=== PATIENT | female | born 1960 | race Caucasian/White ===

== ENCOUNTER 2025-03-22 09:44 | Emergency (ER) | payer OTHER, SELFPAY ==
--- NOTE | ~2025-03-22 | XR_ITS ---
EXAMINATION: XR knee LT min 4V, 03/22/2025 10:20 CONSTRUCTION ECONOMIST HISTORY: injury THIS MORNING COMPARISON: No comparisons available. Findings: No acute fracture or malalignment. No significant degenerative changes. Soft tissues unremarkable. Impression: No acute fracture or malalignment. Reviewed, dictated and finalized at location P. TRUCTION ECONOMIST Impression: No acute fracture or malalignment.
--- NOTE | 2025-03-22 10:01 | ED.LOWEXIN ---
HPI - Extremity Injury (Lower) General Chief Complaint: Extremity Injury, Lower Stated Complaint: L knee Pain Time Seen by Provider: 03/22/25 10:35 Source: patient and RN notes reviewed Mode of arrival: ambulatory Limitations: no limitations History of Present Illness HPI Narrative: 64-year-old female Presents Express Care complaining of injury to left knee. Patient reports getting all the counts this morning filter left knee twists. Patient denies any popping sounds. Patient denies any falls or any other injuries. Patient's not try anything up with the pain. Patient states she injured her left knee 20 years ago and has issue since. Patient was never evaluated by specialist or an orthopedist. Patient denies any numbness, tingling or any other symptoms. Patient denies any significant past medical history. Related Data Home Medications ?Medication ?Instructions ?Recorded ?Confirmed ?Last Taken ?Type losartan 25 mg tablet mg 03/22/25 Unknown History meloxicam 7.5 mg tablet 7.5 mg PO DAILY 03/22/25 03/22/25 Unknown History Allergies Allergy/AdvReac Type Severity Reaction Status Date / Time Penicillins Allergy Swelling Verified 03/22/25 10:06 of Lip/Tongue/Throat Review of Systems Review of Systems: CONSTITUTIONAL: Denies fever, chills, or sweats. EYES: Denies visual changes, redness, or discharge. ENT: Denies rhinorrhea, congestion, sore throat, or otalgia. CARDIOVASCULAR: Denies chest pain, palpitations, or edema. RESPIRATORY: Denies cough or dyspnea. GASTROINTESTINAL: Denies abdominal pain, nausea, vomiting, or diarrhea. GENITOURINARY: Denies dysuria or hematuria. SKIN: Denies rash, wound, or itching. MUSCULOSKELETAL: Denies back pain, joint pain, or myalgia. Positive for left knee pain NEUROLOGIC: Denies headache, numbness, or weakness. PSYCHIATRIC: Denies anxiety or depression. All other systems reviewed are negative, except as documented in HPI. PMFSH Comments At the time of my signature, I reviewed and agree with the nursing past medical, surgical, social, and family history. There is no relevant family history pertinent to the patient complaint. Exam Narrative: GENERAL: This is a well-nourished, well-developed adult, in no apparent distress. They are non ill-appearing, nontoxic appearing. HEAD: normocephalic, atraumatic. EYES: Sclera clear/white. Vision is grossly intact. Conjunctiva normal. Extraocular movement intact. EARS: External ears normal Hearing grossly intact. NOSE: External nose normal THROAT: Mucous membranes moist NECK: Neck supple CARDIOVASCULAR: Regular rate and rhythm RESPIRATORY: Respiratory rate normal, respiratory effort nonlabored, no respiratory distress NEURO: awake, alert, and oriented to person, place and time. There were no obvious focal neurologic abnormalities. EXTREMITIES: No obvious deformity, injury, swelling, bruising, redness. There is pain to the lateral knee through full range of motion. No bony tenderness. Capillary refill less than 3 seconds. Normal sensation. Neurovascular status intact distal injury. There is valgus laxity compared to the right knee. No varus laxity. Negative anterior drawer test. BACK: Nontender without deformity. Course Course Emergency Course: Portions of this record may have been created with voice recognition software Level of Care: Express Care Visit Vital Signs Vital signs: Vital Signs Temperature 97.5 F L 03/22/25 10:06 Pulse Rate 57 L 03/22/25 10:06 Respiratory Rate 18 03/22/25 10:06 Blood Pressure 155/75 H 03/22/25 10:06 Pulse Oximetry 99 03/22/25 10:06 Oxygen Delivery Room Air 03/22/25 10:06 Temperature 97.5 F L 03/22/25 10:06 Pulse Rate 57 L 03/22/25 10:06 Respiratory Rate 18 03/22/25 10:06 Blood Pressure 155/75 H 03/22/25 10:06 Pulse Oximetry 99 03/22/25 10:06 Oxygen Delivery Room Air 03/22/25 10:06 Reviewed MDM - Extremity Injury (Lower) MDM Narrative Medical decision making narrative: X-ray left knee negative for any fracture or acute findings. Likely knee sprain. Patient given information for orthopedist. Offered patient Tra wrap, she says she has a brace at home she will wear. Discussed supportive care and rice therapy. Discussed physical exam findings. Advised supportive measures and signs/symptoms to go to the ER. Pt is appropriate for outpt treatment and f/u. Differential Diagnosis Differential diagnosis: Likely acute internal derangement of knee and other (Knee fracture, knee sprain, ligament injury) Imaging Data Radiologist's impression: ITS Impressions Knee X-Ray 11/25/25 10:33 Impression: No acute fracture or malalignment. Critical Care Time Critical Care Time Critical Care Time: No Discharge Plan Discharge Clinical Impression: Injury of knee, left Qualifiers: Encounter type: initial encounter Qualified Code(s): S89.92XA - Unspecified injury of left lower leg, initial encounter Patient Disposition: Home Condition: Stable Instructions: Knee Sprain (ED) Additional Instructions: The x-ray of your left knee is negative for any fractures or acute findings. Rest and elevate the leg; bear weight as tolerated Apply ice 15-20 minute intervals several times a day Keep it wrapped with TRA or use a knee brace Take your meloxicam as directed. You may also alternate with Tylenol follow instructions on the bottle. Follow up with your primary care provider orthopedist in 3-5 days. Patient Language: [place] Islander Prescriptions: No Action losartan 25 mg tablet meloxicam 7.5 mg tablet 7.5 mg PO DAILY Follow-up/Referrals: Parker Shannon MD [Physician, Orthopedics] - 3 Days ALEJANDRO,LUCIAN JUNE [Primary Care Provider] Time of Disposition: 10:47
[2025-03-22 10:06] VITALS: BP 155/75; PULSE 57; RESP 18; TEMP 36.4; O2SAT 99
--- OUTSIDE RECORDS SUMMARY | 2025-03-22 10:41 | XMS_ITS | Patient Health Record ---
Author Organization [facility] Address [address] [place], [place] [id number] Care Team Providers Care Asphalt Plant Operator Name Role Phone PHAN Salter Unavailable [phone] Reason For Referral No Information Social History Social History Additional Details Category Social Info Options Details Migrated Social History Migrated Social History History of tobacco use : , Smoking Status : Never smoked , Alcohol intake : Plan Of Treatment No Information Insurance Providers Payer Name Payer Address Payer Phone Subscriber Number Group Number Insured Name Patient Relationship to Insured Coverage Start Date Coverage End Date [facility] [address] [address] [place] [address] [id number] AVILA CRUZ Self - patient is the insured
--- OUTSIDE RECORDS SUMMARY | 2025-03-22 10:59 | XMS_ITS | Encounter Summary ---
Author Organization [facility] Address [facility] [place] [address] Care Team Providers Care Ampoule Inspector Name Role Phone Kirti San RAKAN Primary Care Provider [phone] Encounter Details Date Type Department Care Team (Late st Contact Info) Description 10/15/2019 Therapy Plan [facility] [address] [place] [address] Winston Scott MD [address] [place] [address] Social History Tobacco Use Types Packs/Day Years Used Date Smoking Tobacco: Never Smokeless Tobacco: Never Alcohol Use Standard Drinks/Week Comments No 0 (1 standard drink = 0.6 oz pur e alcohol) AUDIT-C Answer Date Recorded Frequency of Alcohol Consumption Never 07/26/2018 Average Number of Drinks Not on file 019 Frequency of Binge Drinking Not on file 06/28 Comments No Sex and Gender Information Value Date Recorded Sex Assigned at Female 06/15/2024 3:34 PM RIG SUPERINTENDENT Legal Sex Female 8:21 PM CDT Gender Identity Female 06/15/2024 3:34 PM RIG SUPERINTENDENT Sexual Orientation Not on file COVID-19 Exposure Response Date Recorded In the last month, have you been in contact with someone who was confirmed or suspected to have Coronavirus / COVID-19? No / Unsure 09/15/2019 8:10 AM CDT documented as of this encounter Plan of Treatment Not on file documented as of this encounter Visit Diagnoses Not on filedocumented in this encounter Care Teams Ampoule Inspector Relationship Specialty Start Date End Date Kirti San FNP [address] [place] [address] PCP - General Nurse Practitioner Family 02/26/19 documented as of this encounter
--- OUTSIDE RECORDS SUMMARY | 2025-03-22 10:59 | XMS_ITS | Encounter Summary ---
Author Organization [facility] Address [address] [place] [address] Care Team Providers Care Weekend Caregiver Name Role Phone Kirti San Primary Care Provider [phone] Encounter Details Date Type Department Care Team (Late st Contact Info) Description 07/18/2021 Webjamt Message Enc [facility] Medical Group Family & Internal Medicine [place] [id number] [place] [address] Kirti San FNP [address] [place] [address] Medical card Social History Tobacco Use Types Packs/Day Years Used Date Smoking Tobacco: Never Smokeless Tobacco: Never Alcohol Use Standard Drinks/Week Comments No 0 (1 standard drink = 0.6 oz pur e alcohol) AUDIT-C Answer Date Recorded Frequency of Alcohol Consumption Never 07/26/2018 Average Number of Drinks Not on file 019 Frequency of Binge Drinking Not on file 06/28 PHQ-2 Answer Date Recorded PHQ-2 Score - If the patient scores above 3, please move on to questions 3-9 0 12/19/2020 Comments No Sex and Gender Information Value Date Recorded Sex Assigned at Female 06/15/2024 3:34 PM DIRECTOR DISTRIBUTION Legal Sex Female 8:21 PM CDT Gender Identity Female 06/15/2024 3:34 PM DIRECTOR DISTRIBUTION Sexual Orientation Not on file COVID-19 Exposure Response Date Recorded In the last 10 days, have yo u been in contact with someone who was confirmed or suspected to have Coronavirus/COVID-19? No / Unsure 06/18/2021 8:43 AM DIRECTOR DISTRIBUTION documented as of this encounter Plan of Treatment Not on file documented as of this encounter Visit Diagnoses Not on filedocumented in this encounter Additional Health Concerns Assessment Noted Time PHQ-9 Depression Total Score: 0 12/20/19 10:34 AM CDT documented as of this encounter Care Teams Weekend Caregiver Relationship Specialty Start Date End Date Kirti San FNP [address] [place] [address] PCP - General Nurse Practitioner Family 02/26/19 documented as of this encounter
--- OUTSIDE RECORDS SUMMARY | 2025-03-22 10:59 | XMS_ITS | Encounter Summary ---
Author Organization [facility] Address [address] [place] [address] Care Team Providers Care Airport Guide Name Role Phone Kirti San Primary Care Provider [phone] Encounter Details Date Type Department Care Team (Late st Contact Info) Description 12/28/2024 EpicTopichart Message Enc [facility] Medical Group Family & Internal Medicine [facility] [address] [place] [address] Kirti San FNP [address] [place], [place] [id number] Infusion Theraphy Social History Tobacco Use Types Packs/Day Years Used Date Smoking Tobacco: Never Smokeless Tobacco: Never Alcohol Use Standard Drinks/Week Comments Yes 0 (1 standard drink = 0.6 oz pur e alcohol) occasionally AUDIT-C Answer Date Recorded Frequency of Alcohol Consumption Never 07/26/2018 Average Number of Drinks Not on file 019 Frequency of Binge Drinking Not on file 06/28 PHQ-2 Answer Date Recorded Patient Health Questionnaire-2 Score 0 06/15/2024 Comments No Sex and Gender Information Value Date Recorded Sex Assigned at Female 06/15/2024 3:34 PM VAULT MANAGER Legal Sex Female 8:21 PM CDT Gender Identity Female 06/15/2024 3:34 PM VAULT MANAGER Sexual Orientation Not on file documented as of this encounter Plan of Treatment Not on file documented as of this encounter Visit Diagnoses Not on filedocumented in this encounter Additional Health Concerns Assessment Noted Time PHQ-9 Depression Total Score: 1 12/28/19 22 2:02 PM CDT documented as of this encounter Care Teams Airport Guide Relationship Specialty Start Date End Date Kriti San FNP [address] [place] [address] PCP - General Nurse Practitioner Family 02/26/19 documented as of this encounter
--- OUTSIDE RECORDS SUMMARY | 2025-03-22 10:59 | XMS_ITS | Encounter Summary ---
Author Organization [facility] Address [facility] [place] [address] Care Team Providers Care Wellness Ambassador Name Role Phone Kirti San RAKAN Primary Care Provider [phone] Encounter Details Date Type Department Care Team (Late st Contact Info) Description 05/21/2021 Therapy Plan [address] [address] Winston Scott MD [address] [place] [address] Social History Tobacco Use Types [...] Sex Assigned at Female 06/15/2024 3:34 PM MICROFILM CLERK Legal Sex Female 8:21 PM CDT Gender Identity Female 06/15/2024 3:34 PM MICROFILM CLERK Sexual Orientation Not on file COVID-19 Exposure Response Date Recorded In the last month, have you been in contact with someone who was confirmed or suspected to have Coronavirus / COVID-19? Yes 05/04/2021 9:17 PM MICROFILM CLERK documented as of this encounter Plan of Treatment Not on file documented as of this encounter Visit Diagnoses Not on filedocumented in this encounter Additional Health Concerns Assessment Noted Time PHQ-9 Depression Total Score: 0 12/20/19 10:34 AM CDT documented as of this encounter Care Teams Wellness Ambassador Relationship Specialty Start Date End Date Kirti San FNP [address] [place] [address] PCP - General Nurse Practitioner Family 02/26/19 documented as of this encounter
--- OUTSIDE RECORDS SUMMARY | 2025-03-22 10:59 | XMS_ITS | Encounter Summary ---
Author Organization [facility] Address [facility] [place] [address] Care Team Providers Care Attic Fans Mechanic Name Role Phone None, Provider Primary Care Provider Kirti Meyer Primary Care Provider [phone] Encounter Details Date Type Department Care Team (Late st Contact Info) Description 01/26/2019 Therapy Plan [facility] [address] [place] [address] Winston Scott MD [address] [place] [address] Social History Tobacco Use Types Packs/Day Years Used Date Smoking Tobacco: Never Smokeless Tobacco: Never Alcohol Use Standard Drinks/Week Comments No 0 (1 standard drink = 0.6 oz pur e alcohol) AUDIT-C Answer Date Recorded Frequency of Alcohol Consumption Never 07/26/2018 Average Number of Drinks Not on file 019 Frequency of Binge Drinking Not on file 06/28 Comments Unknown Sex and Gender Information Value Date Recorded Sex Assigned at Female 06/15/2024 3:34 PM MECHANICAL TECHNICIAN Legal Sex Female 8:21 PM CDT Gender Identity Female 06/15/2024 3:34 PM MECHANICAL TECHNICIAN Sexual Orientation Not on file documented as of this encounter Plan of Treatment Not on file documented as of this encounter Visit Diagnoses Not on filedocumented in this encounter Care Teams Attic Fans Mechanic Relationship Specialty Start Date End Date None, Provider, PCP - General 07/26/18 02/25/19 Kirti San FNP [address] [place] [address] PCP - General Nurse Practitioner Family 02/26/19 documented as of this encounter
--- OUTSIDE RECORDS SUMMARY | 2025-03-22 10:59 | XMS_ITS | Encounter Summary ---
Author Organization [facility] Address [facility] [place] [address] Care Team Providers Care Advertising Sales Agent Name Role Phone Kirti San RAKAN Primary Care Provider [phone] Encounter Details Date Type Department Care Team (Late st Contact Info) Description 05/03/2020 Therapy Plan [facility] [address] [place] [address] Winston Scott MD [address] [place] [address] Social History Tobacco Use Types [...] Sex Assigned at Female 06/15/2024 3:34 PM PRINCIPAL TECHNICAL SPECIALIST Legal Sex Female 8:21 PM CDT Gender Identity Female 06/15/2024 3:34 PM PRINCIPAL TECHNICAL SPECIALIST Sexual Orientation Not on file COVID-19 Exposure Response Date Recorded In the last month, have you been in contact with someone who was confirmed or suspected to have Coronavirus / COVID-19? No / Unsure 05/03/2020 11:18 AM PRINCIPAL TECHNICAL SPECIALIST documented as of this encounter Plan of Treatment Not on file documented as of this encounter Visit Diagnoses Not on filedocumented in this encounter Care Teams Advertising Sales Agent Relationship Specialty Start Date End Date Kirti San FNP [address] [place] [address] PCP - General Nurse Practitioner Family 02/26/19 documented as of this encounter
--- OUTSIDE RECORDS SUMMARY | 2025-03-22 10:59 | XMS_ITS | Encounter Summary ---
Author Organization [facility] Address [facility] [place] [address] Care Team Providers Care Corporate Legal Manager Name Role Phone Kirti San Primary Care Provider [phone] Encounter Details Date Type Department Care Team (Late st Contact Info) Description 10/23/2022 MyChart Message Enc [facility] Medical Group - [facility] [address] [place], [place] [address] [facility] Provider Air Quality Message Social History Tobacco Use Types Packs/Day Years [...] Date Recorded Patient Health Questionnaire-2 Score 0 07/01/2022 Comments No Sex and Gender Information Value Date Recorded Sex Assigned at Female 06/15/2024 3:34 PM LEGAL WRITING PROFESSOR Legal Sex Female 8:21 PM CDT Gender Identity Female 06/15/2024 3:34 PM LEGAL WRITING PROFESSOR Sexual Orientation Not on file documented as of this encounter Plan of Treatment Not on file documented as of this encounter Visit Diagnoses Not on filedocumented in this encounter Additional Health Concerns Assessment Noted Time PHQ-9 Depression Total Score: 1 12/28/19 22 2:02 PM CDT documented as of this encounter Care Teams Corporate Legal Manager Relationship Specialty Start Date End Date Kirti San FNP [address] [place] [address] PCP - General Nurse Practitioner Family 02/26/19 documented as of this encounter
--- OUTSIDE RECORDS SUMMARY | 2025-03-22 10:59 | XMS_ITS | Clinical Summary ---
Author Organization [facility] Address [address] [place] [address] Care Team Providers Care Recreation Specialist Name Role Phone Shaylee Allen RAKAN Primary Care Provider [phone] Allergies Active Allergy Reactions Criticality Noted Date Comments Penicillins Unknown,Hives 09/28/2004 Suture Material Other (see comment),Redness,Swelling 08/24/2024 Medications cetirizine 10 MG tablet Take 1 tablet (10 mg total) by mouth daily. Active Multiple Vitamin (MULTIVITAMIN ADULT OR) Active Albuterol-Budesoni de (AIRSUPRA) 90-80 MCG/ACT AerosolIndications :Moderate persistent asthma, uncomplicated (HHS/HCC) Inhale 2 puffs into the lungs every 4 (four) hours. 32.1 g 3 5 Active methylPREDNISolone , CRESCENCIO, (MEDROL DOSEPAK) 4 MG tabletIndications: Poison marleni 6 TABLETS ON DAY ONE, 5 TABLETS DAY TWO, 4 TABLETS DAY THREE, 3 TABLETS DAY FOUR, 2 TABLETS DAY FIVE, AND 1 TABLET DAY SIX 1 each 5 Active losartan (COZAAR) 25 MG tabletIndications: Primary hypertension Take 1 tablet (25 mg total) by mouth daily. 90 tablet 3 5 Active Active Problems Problem Noted Date Diagnosed Date Vitamin B 12 deficiency 08/31/2024 Situational anxiety 02/26/2023 Heart murmur 12/27/2021 Overweight with body mass in dex (BMI) of 27 to 27.9 in adult 05/02/2021 Allergy to mold 04/19/2021 Allergy to penicillin 04/19/2021 Muscle spasm of right lower extremity 04/19/2021 Poison marleni dermatitis 12/27/2020 Moderate persistent asthma, uncomplicated 2019 Post-menopausal 03/08/2019 Vitamin D deficiency 03/08/2019 Primary hypertension 03/08/2019 Allergic rhinitis due to animal (cat) (dog) hair and dander 12/09/2018 Non-seasonal allergic rhinitis 12/09/2018 Allergic rhinitis due to pollen 11/11/2018 ASIF (obstructive sleep apnea) 11/17/2015 Overview (07/26/2018): Impression - [id number] Shaina Monte: MOD-SEVERE CPAP 9 Anemia 11/14/2014 Resolved Problems Problem Noted Date Diagnosed Date Resolved Date Leg swelling 01/02/2022 06/20/2024 Chronic pain of right knee 04/19/2021 0 06/20/2024 Chronic right shoulder pain 12/27/2020 06/20/2024 Encounter for screening for osteoporosis 03/08/2019 01/07/2020 Encounter for screening mamm ogram for breast cancer 03/08/2019 01/07/2020 Recurrent acute suppurative otitis media without spontaneous rupture of left tympanic membrane 03/08/2019 06/20/2024 Body mass index (bmi) 26.0-26.9, adult 03/08/2019 06/20/2024 Encounter for lipid screenin g for cardiovascular disease 03/08/2019 01/07/2020 Screening for endocrine, nut ritional, metabolic and immunity disorder 03/08/2019 01/07/20 Need for influenza vaccination 03/08/2019 01/07/2020 Encounters Date Type Department Care Team Description 03/22/2025 Telephone [facility] Family [facility] Internal Medicine [address] [address] Shaylee Allen FNP Medication Request 12/28/2024 MyChart Message Enc [facility] [address] [address] Shaylee Allen FNP Infusion Theraphy from Last 3 Months Immunizations Immunization Administration Dates Next Due Fluzone 6 Months+ Quad (0.5 mL Prefilled Syringe) 04/19/2021,03/14/2020 Fluzone High Dose - >Age 65 (Prefilled Syringe) 04/05/2022,03/03/2019 Influenza (Generic) 04/12/2015,12/21/2013 Influenza Adult (Generic) 01/09/2016,04/12/2015, 12/21/2013 [facility] ([email or web address]) COVID-19 AD26 VACCINE 0.5 ML IM SUSP 07/26/2020 PFIZER COVID-19 ([place] [facility]), MRNA, LNP-S, PF, 30 MCG/0.3 ML AMANDA-SUCROSE, IM 05/05/2021 Pneumococcal (Pneumovax 23) 03/16/2012 Pneumococcal (Prevnar 13) 03/03/2019 Shingrix 02/11/2019,12/05/2018 Zoster (Zostavax) 06456 Unt/0.65Ml 04/24/2015, Family History Medical History Relation Comments Cancer Father Hypertension Father Cancer Mother Stroke Mother Relation Status Comments Father Mother (Age 91) Social History Tobacco Use Types Packs/Day Years Used Date Smoking Tobacco: Never Smokeless Tobacco: Never Tobacco Cessation:Counseling Given: Not Answered Alcohol Use Standard Drinks/Week Comments Yes 0 [...] Assigned at Female 06/15/2024 3:34 PM DIRECTOR OF GROUP COUNSELING PROGRAM Legal Sex Female 8:21 PM CDT Gender Identity Female 06/15/2024 3:34 PM DIRECTOR OF GROUP COUNSELING PROGRAM Sexual Orientation Not on file Last Filed Vital Signs Vital Sign Reading Time Taken Comments Blood Pressure 136/74 08/31/2024 10:43 AM CDT Pulse 54 08/31/2024 10:43 AM CDT Temperature 36.8 C (98.2 F) 08/31/2024 10:43 AM CDT Respiratory Rate 16 08/31/2024 10:43 AM CDT Oxygen Saturation 96% 08/31/2024 10:43 AM CDT Inhaled Oxygen Concentration - - Weight 71.9 kg (158 lb 8 oz) 08/31/2024 10:43 AM CDT Height 162.6 cm (5' 4) 08/31/2024 10:43 AM CDT Body Mass Index 27.21 08/31/2024 10:43 AM CDT Plan of Treatment Health Maintenance Due Date Last Done Comments Cervical Cancer Screening Pap with HPV Testing (Age 30 to 64) Every 5 Years 1990 Annual Physical 05/01/2022 05/01/2021 Pneumococcal Vaccine: 50+ Years (3 of 3 - PCV20 or PCV21) 03/03/2024 03/03/2019, 03/16/2012 Cervical Cancer Screening Pap Smear (Age 30 to 64) Every 3 Years 05/01/2024 05/01/2021 COVID-19 Vaccine ( season) 2024 05/05/2021, 07/26/2020 Influenza Adult (#1) 2025 04/05/2022, 04/19/2021, 03/14/2020, Additional history exists Cervical Cancer Screening with HPV 06/15/2025 Postponed from 05/01/2024 (Patient Refused) Colorectal Cancer Screening FIT-DNA (3 Years) 06/15/2025 05/06/2021, 05/06/2021 Postponed from 05/06/2024 (Patient Refused) DTaP, Tdap and Td Vaccines (1 - Tdap) 06/15/2025 Postponed from 08/23/1979 (Patient Refused) Mammogram Screening 06/15/2025 07/24/2021 Postpone d from 07/25/2023 (Patient Refused) RSV Immunization or 60+ Years (1 - Risk 60-74 years 1-dose series) 06/15/2025 Postponed fro m 2020 (Patient Refused) Colorectal Cancer Screening Colonoscopy (10 Years) Discontinued 01/08/2011 Zoster Vaccines Completed 02/11/2019, 11/26, 04/24/2015, Additional history exists Hepatitis C Completed 04/19/2021 PHQ-2 (Physician [place] [facility] [place]) Completed 06/15/2024 Hepatitis A Vaccines Aged Out No long er eligible based on patient's age to complete this topic Meningococcal B Vaccine Aged Out No l onger eligible based on patient's age to complete this topic Meningococcal Vaccine Aged Out No bailey jaquan eligible based on patient's age to complete this topic RSV Immunizations Under 20 Months Aged Out No longer eligible based on patient's age to complete this topic Procedures Procedure Name Priority Date/Time Associated Diagnosis Comments MG SCREENING W LITO ELIANE DIGI Routine 07/24/2021 3:42 PM CDT Encounter for screening mammogram for breast cancer COLOGUARD (EXACT SCIENCE) Routine 05/06/2021 7:30 PM DIRECTOR OF GROUP COUNSELING PROGRAM Colon cancer screening CYTOPATH CERV/VAG THIN LAYER Routine 05/01/2021 9:10 AM DIRECTOR OF GROUP COUNSELING PROGRAM Well woman exam with routine gynecological exam HEPATITIS C ANTIBODY Routine 04/19/2021 1:13 PM DIRECTOR OF GROUP COUNSELING PROGRAM Need for hepatitis C screening test COLONOSCOPY Routine 01/08/2011 12:00 AM CDT from Last 3 Months or Most Recently Relevant to Health Maintenance Results * MG SCREENING W LITO ELIANE DIGI (07/24/2021 3:42 PM CDT) Anatomical Region Laterality Modality Breast Bilateral Mammography 07/24/2021 4:01 PM CDT Impressions 07/24/2021 4:04 PM CDT IMPRESSION: No suspicious mammographic findings. Recommendation: 1. Routine Screening, Bilateral Assessment: ACR BI-RADS 2 - BENIGN FINDING(S) Ordered By: SHAYLEE ALLEN Interpreted By: Ricky Maxwell, 07/24/2021 4:01 PM Narrative 07/24/2021 4:04 PM CDT Examination: Screening bilateral mammogram Exam Date/Time: 07/24/2021 3:42 PM Clinical history: No current complaints Comparison: None. Baseline exam. Technique: Digital screening mammography of both breasts was performed. Breast tomosynthesis acquisitions were obtained and reviewed. This study was read with the assistance of a computer-aided detection system. Tissue density: There are scattered areas of fibroglandular density. Findings: No suspicious masses, malignant appearing calcifications, skin thickening or other abnormalities are present. Shaylee Allen TRAVELING CLERK MAMMO Final Result * COLOGUARD (EXACT SCIENCE) (05/06/2021 7:30 PM DIRECTOR OF GROUP COUNSELING PROGRAM) COLOGUARD RESULT Negative Negative [facility] (CLIA #:[id number]) Comment: NEGATIVE TEST RESULT. A negative Cologuard result indicates a low likelihood that a colorectal cancer (CRC) or advanced adenoma (adenomatous polyps with more advanced pre-malignant features) is present. The chance that a person with a negative Cologuard test has a colorectal cancer is less than 1 in 1500 (negative predictive value >99.9%) or has an advanced adenoma is less than 5.3% (negative predictive value 94.7%). These data are based on a prospective cross-sectional study of 10,000 individuals at average risk for colorectal cancer who were screened with both Cologuard and colonoscopy. (Eduardo Muniz et al, N Engl J Med 2014;370(14):5271-4288) The normal value (reference range) for this assay is negative. COLOGUARD RE-SCREENING RECOMMENDATION: Periodic colorectal cancer screening is an important part of preventive healthcare for asymptomatic individuals at average risk for colorectal cancer. Following a negative Cologuard result, the [place] [employer] Society and U.S. Multi-Society Task Force screening guidelines recommend a Cologuard re-screening interval of 3 years. References: [place] [employer] Guideline for Colorectal Cancer Screening: https://www.cancer.org/cancer/fybkd-vczpgs-qsscge/yvurlgkbs-zyfmcbprs-mfpyijx/ac s-rec ommendations.html.; aH GUZMÁN, Eli CR, Yakov NicoleK, Colorectal Cancer Screening: Recommendations for Physicians and Patients from the U.S. Multi-Society Task Force on Colorectal Cancer Screening , Am J Gastroenterology 2017; 112:5051-9066. TEST DESCRIPTION: Composite algorithmic analysis of stool DNA-biomarkers with hemoglobin immunoassay. Quantitative values of individual biomarkers are not reportable and are not associated with individual biomarker result reference ranges. Cologuard is intended for colorectal cancer screening of adults of either sex, 45 years or older, who are at average-risk for colorectal cancer (CRC). Cologuard has been approved for use by the U.S. FDA. The performance of Cologuard was established in a cross sectional study of average-risk adults aged 50-84. Cologuard performance in patients ages 45 to 49 years was estimated by sub-group analysis of near-age groups. Colonoscopies performed for a positive result may find as the most clinically significant lesion: colorectal cancer [4.0%], advanced adenoma (including sessile serrated polyps greater than or equal to 1cm diameter) [20%] or non- advanced adenoma [31%]; or no colorectal neoplasia [45%]. These estimates are derived from a prospective cross-sectional screening study of 10,000 individuals at average risk for colorectal cancer who were screened with both Cologuard and colonoscopy. (Eduardo Muniz et al, N Engl J Med 2014;370(14):9504-7018.) Cologuard may produce a false negative or false positive result (no colorectal cancer or precancerous polyp present at colonoscopy follow up). A negative Cologuard test result does not guarantee the absence of CRC or advanced adenoma (pre-cancer). The current Cologuard screening interval is every 3 years. ([place] [employer] and U.S. Multi-Society Task Force). Cologuard performance data in a 10,000 patient pivotal study using colonoscopy as the reference method can be accessed at the following location: www.[employer].Taggs/results. Additional description of the Cologuard test process, warnings and precautions can be found at www.cologuard.com. STOOL STOOL SPECIMEN / Unknown 05/06/2021 7:30 PM DIRECTOR OF GROUP COUNSELING PROGRAM 05/08/2021 9:29 AM DIRECTOR OF GROUP COUNSELING PROGRAM us Shaylee Allen TRAVELING CLERK BODY FLUIDS AND STOOLS ORDERAB LES Final Result [facility]) [address] [place] [address], [facility] (CLIA #:[id number]) [address] [place] [address] * Cytopath Cerv/Vag Thin Layer (05/01/2021 9:10 AM DIRECTOR OF GROUP COUNSELING PROGRAM) THIN PREP PAP [address] [place] [address] Department of Pathology Pathology Report CERVICAL/VAGINAL PAP SMEAR REPORT Name: JENN RIVERO Age: 4 1960 (Age: 60) Location: [facility] Sex: F Collected Date: 05/01/2021 Hospital #: [id number] Date Received: 05/03/2021 Date Reported: 05/07/2021 Provider: SHAYLEE BLEDSOE-C INTERPRETATION CERVICAL/ENDOCERVI GIAN: SATISFACTORY FOR EVALUATION. ENDOCERVICAL/TRANS FORMATION ZONE COMPONENT PRESENT. NEGATIVE FOR INTRAEPITHELIAL LESION OR MALIGNANCY. Electronically Signed Out By TORY Marquez (ASCP) CLINICAL HISTORY Z01.419 SCREENING PAP TEST WELL WOMAN EXAM ThinPrep Pap Test Only Date of Last Menstrual Period: UNKNOWN Menstrual Status: Regular SPECIMEN SUBMITTED CERVICAL/ENDOCERVI GIAN Specimen Received:1 Thin Prep Vial, Image Assisted Pap (SMD) Please note: The Pap smear is not a diagnostic test. It is a screening test. Negative results on combined screening (Pap test and HPV-DNA) have a high negative predictive value (99.1-100 percent) for cervical cancer. The pap test is not effective in detecting cervical adenocarcinoma. [facility] 05/01/2021 9:10 AM DIRECTOR OF GROUP COUNSELING PROGRAM 05/03/2021 9:10 AM DIRECTOR OF GROUP COUNSELING PROGRAM Comment:CERVICAL/ENDOCERVICA L Shaylee BLDESOE PATHOLOGY/CYTOLOGY ORDERABLES Final Result [facility] [address] [place] [address], * HEPATITIS C ANTIBODY (04/19/2021 1:13 PM DIRECTOR OF GROUP COUNSELING PROGRAM) HEPATITIS C AB NON-REACTI VE NON-REACTI VE 04/19/2021 2:58 PM DIRECTOR OF GROUP COUNSELING PROGRAM [facility] 04/19/2021 1:13 PM DIRECTOR OF GROUP COUNSELING PROGRAM us Shaylee Allen TRAVELING CLERK LABORATORY Final Result [facility] [address] [place] [address], [place] [phone] * Colonoscopy (01/08/2011 12:00 AM CDT) 01/08/2011 01/08/2011 Narrative [facility] TO EPIC CONVERSION - 01/08/2011 12:00 AM CDT Documented hx of procedure Procedure Note Simi Meeks MD - 03/01/2018 Documented hx of procedure us Generic Conversion Md MEEKS GI PROCEDURE ORDERABLES Final Result [facility] TO EPIC CONVERSION from Last 3 Months or Most Recently Relevant to Health Maintenance Insurance [employer] Advance Directives Documents on File Type Date Recorded Patient Textiles Sales Representative Expl anation Advance Directives and Living Will 04/19/2015 12:00 AM ADVANCED DIRECTIVES Care Teams Recreation Specialist Relationship Specialty Start Date End Date Shaylee Allen FNP [address] [place] [id number] PCP - General Nurse Practitioner Family 02/26/19
--- OUTSIDE RECORDS SUMMARY | 2025-03-22 10:59 | XMS_ITS | Encounter Summary ---
Author Organization [facility] Address [address] [place] [address] Care Team Providers Care Continuing Education Dean Name Role Phone Kirti San Primary Care Provider [phone] Reason for Visit * Reason Onset Date Comments Medication Request 03/22/2025 Encounter Details Date Type Department Care Team (Late st Contact Info) Description 03/22/2025 Telephone [facility] Family & Internal Medicine [id number] [place] [address] Kirti San FNP [facility] [place] [address] Medication Request Social History Tobacco Use Types Packs/Day Years [...] Sex Assigned at Female 06/15/2024 3:34 PM MUD JACK OPERATOR Legal Sex Female 8:21 PM CDT Gender Identity Female 06/15/2024 3:34 PM MUD JACK OPERATOR Sexual Orientation Not on file documented as of this encounter Plan of Treatment Not on file documented as of this encounter Visit Diagnoses Not on filedocumented in this encounter Additional Health Concerns Assessment Noted Time PHQ-9 Depression Total Score: 1 12/28/19 22 2:02 PM CDT documented as of this encounter Care Teams Continuing Education Dean Relationship Specialty Start Date End Date Kirti San FNP [address] [place] [id number] PCP - General Nurse Practitioner Family 02/26/19 documented as of this encounter
--- OUTSIDE RECORDS SUMMARY | 2025-03-22 10:59 | XMS_ITS | Encounter Summary ---
Author Organization [facility] Address [address] [place] [address] Care Team Providers Care Slide Fastener Repairer Name Role Phone None, Provider Primary Care Provider Kirti Meyer Primary Care Provider [phone] Encounter Details Date Type Department Care Team (Late st Contact Info) Description 12/09/2000 Abstract [facility] Conversion Md, Generic Conversion, Social History Tobacco Use Types Packs/Day Years Used Date Smoking Tobacco: Never Assessed Comments Unknown Sex and Gender Information Value Date Recorded Sex Assigned at Female 06/15/2024 3:34 PM NON LICENSED OPERATOR Legal Sex Female 8:21 PM CDT Gender Identity Female 06/15/2024 3:34 PM NON LICENSED OPERATOR Sexual Orientation Not on file documented as of this encounter Plan of Treatment Not on file documented as of this encounter Visit Diagnoses Not on filedocumented in this encounter Care Teams Slide Fastener Repairer Relationship Specialty Start Date End Date None, Provider, PCP - General 07/26/18 02/25/19 Kirti San FNP [address] [place] [id number] PCP - General Nurse Practitioner Family 02/26/19 documented as of this encounter
== END 2025-03-22 10:51 | disposition home or self-care (01) ==
PROVIDERS: PCP Nurse Practitioner Family
DX: S89.92XA Unspecified injury of left lower leg, initial encounter (principal); X50.9XXA Other and unspecified overexertion or strenuous movements or postures, initial encounter; I10 Essential (primary) hypertension
CPT/HCPCS: 73564; 99203; G0463